=== PATIENT | male | born 1955 | race Caucasian/White ===

== ENCOUNTER 2017-06-30 05:22 | Emergency (ER) | payer SELFPAY ==
[~2017-06-30] VITALS: Ht 177.8 cm; Wt 93.0 kg
[2017-06-30 05:38] VITALS: Ht 177.8 cm; Wt 93.0 kg
[2017-06-30 07:13] VITALS: BP 127/77
== END 2017-06-30 07:13 | disposition home or self-care (01) ==
LOC: ED 05:22
DX: B34.9 Viral infection, unspecified (principal)
CPT/HCPCS: 87804; J1885; J7613; J7644; Q0092; Q0162